=== PATIENT | female | born 1940 | race Caucasian/White ===

== ENCOUNTER → 2016-06-26 | Outpatient (CLI) | payer MEDICARE, MEDICAID | LOC: RAD 13:08 | PROVIDERS: ATTEND Family Medicine | DX: Z12.2 Encounter for screening for malignant neoplasm of respiratory organs (principal); F17.210 Nicotine dependence, cigarettes, uncomplicated | CPT/HCPCS: G0297 ==

== ENCOUNTER 2018-02-21 17:22 | Emergency (ER) | payer MEDICARE, MEDICAID ==
--- NOTE | 2018-02-21 18:30 | ER Document Report ---
ED Medical Screen (RME) - General Chief Complaint: Lower Abdominal Pain Stated Complaint: ABDOMINAL PAIN Time Seen by Provider: 02/21/18 18:27 Mode of Arrival: Ambulatory Information source: Patient Notes: This is a 77 year woman who presents to the emergency room with abdominal pain. Patient does have a history of hypertension and urinary incontinence ( medicines include lisinopril and Ditropan). She does report chills, subjective fevers and lower abdominal discomfort. She has had a history of constipation as well. Patient's primary care doctors in [place]. TRAVEL OUTSIDE OF THE [place] IN LAST 30 DAYS: No - Related Data Allergies/Adverse Reactions: Penicillins Allergy (Verified 02/21/18 17:27) Past Medical History - Past Medical History Cardiac Medical History: Reports: Hx Hypertension Renal/ Medical History: Denies: Hx Peritoneal Dialysis Physical Exam - Vital signs Vitals: Temp Pulse Resp BP Pulse Ox 99.5 F 95 18 142/61 H 95 02/21/18 17:33 02/21/18 17:33 02/21/18 17:33 02/21/18 17:33 02/21/18 17:33 Course - Vital Signs Vital signs: Temp Pulse Resp BP Pulse Ox 99.5 F 95 18 142/61 H 95 02/21/18 17:33 02/21/18 17:33 02/21/18 17:33 02/21/18 17:33 02/21/18 17:33 Doctor's Discharge - Discharge Referrals: FABIÁN CERON MD [Primary Care Provider] - Follow up as needed
[2018-02-21 18:55] LABS: ABSOLUTE EOSINOPHILS # (AUTO) 0.1 10^3/uL (0.0-0.6); ABSOLUTE LYMPHOCYTES (AUTO) 1.2 10^3/uL (0.5-4.7); ABSOLUTE MONOCYTES (AUTO) 0.6 10^3/uL (0.1-1.4); ABSOLUTE NEUT (AUTO) 6.1 10^3/uL (1.7-8.2); BASOPHILS % (AUTO) 0.4 % (0-2); EOSINOPHILS % (AUTO) 0.7 % (0-6); HEMATOCRIT 37.6 % (36.0-47.0); HEMOGLOBIN 12.9 g/dL (12.0-15.5); MEAN CORPUSCULAR HEMOGLOBIN 29.5 pg (27.0-33.4); MEAN CORPUSCULAR HGB CONC 34.2 g/dL (32.0-36.0); MEAN CORPUSCULAR VOLUME 86 fl (80-97); MONOCYTES % (AUTO) 7.4 % (3-13); PLATELET COUNT 101 10^3/uL (150-450); RED BLOOD COUNT 4.37 10^6/uL (3.72-5.28); RED CELL DISTRIBUTION WIDTH 16.2 % (11.5-14.0); SEGMENTED NEUTROPHILS % (AUTO) 76.5 % (42-78); TOTAL CELLS COUNTED % (AUTO) 100 %
[2018-02-21 19:08] LABS: ALANINE AMINOTRANSFERASE 24 U/L (9-52); ALBUMIN 3.9 g/dL (3.5-5.0); ALKALINE PHOSPHATASE 72 U/L (38-126); ANION GAP 10 (5-19); ASPARTATE AMINO TRANSFERASE 51 U/L (14-36); BILIRUBIN,DIRECT 0.5 mg/dL (0.0-0.4); BILIRUBIN,TOTAL 1.8 mg/dL (0.2-1.3); BLOOD UREA NITROGEN 10 mg/dL (7-20); CALCIUM 9.9 mg/dL (8.4-10.2); CARBON DIOXIDE 28 mmol/L (22-30); CHLORIDE 105 mmol/L (98-107); GLUCOSE 134 mg/dL (75-110); SODIUM 142.5 mmol/L (137-145); TOTAL PROTEIN 7.5 g/dL (6.3-8.2)
[2018-02-21] MEDS ORDERED: NORMAL SALINE 1000 ML 1,000 ML IV ONE (19:58)
[2018-02-21 20:30] LABS: APPEARANCE,URINE CLOUDY; BILIRUBIN,URINE SMALL (NEGATIVE); GLUCOSE, URINE NEGATIVE (NEGATIVE); KETONES,URINE TRACE mg/dL (NEGATIVE); LEUKOCYTE ESTERASE,URINE NEGATIVE (NEGATIVE); NITRITE,URINE NEGATIVE (NEGATIVE); PROTEIN,URINE 30 mg/dL (NEGATIVE); URINE SPECIFIC GRAVITY 1.024
[2018-02-21 20:35] LABS: COLOR,URINE DARK YELLOW
[2018-02-21] MEDS ORDERED: ONDANSETRON HCL INJ/PF 4 MG/2 ML SDV IV ONE (21:28)
[2018-02-21] MEDS ORDERED: PROCHLORPERAZINE EDISYLATE INJ 10 MG/2 ML VIAL IV ONE (21:28)
--- NOTE | 2018-02-21 22:43 | RADIOLOGY REPORT (SQ) ---
EXAM DESCRIPTION: CT ABDOMEN WITHOUT IV CONTRAST COMPLETED DATE/TME: 02/21/2018 21:28 CLINICAL HISTORY: 77 years, Female, flank pain This exam was performed according to our departmental dose-optimization program which includes automated exposure control, adjustment of the mA and/or kVp according to patient size and/or use of iterative reconstruction technique where applicable. FINDINGS: Visualized lung bases are within normal limits. Liver and spleen demonstrate calcifications consistent with sequela Atheromatous disease. Liver is nodular and left lobe is enlarged, suspicious for cirrhosis. The spleen is also mildly enlarged. Pancreas, adrenal glands and kidneys are within normal limits. Gallbladder is moderately distended although no pericholecystic inflammation is noted on CT. No significant hydronephrosis or biliary dilatation. There is no renal, ureteral or bladder calculus. No dilated loops of bowel to suggest obstruction. Moderate amount of stool in the colon. No free fluid or free air. No abdominal or pelvic lymphadenopathy. Abdominal aorta moderately calcified without aneurysm. IMPRESSION: No evidence for nephrolithiasis or urinary obstruction. Hepatic cirrhosis.
--- NOTE | 2018-02-21 23:13 | ER Document Report ---
ED General - General Chief Complaint: Lower Abdominal Pain Stated Complaint: ABDOMINAL PAIN Time Seen by Provider: 02/21/18 18:27 Mode of Arrival: Ambulatory TRAVEL OUTSIDE OF THE [place] IN LAST 30 DAYS: No - HPI Patient complains to provider of: Abdominal pain Notes: Patient was seen for abdominal pain headache patient was seen by the triage provider note is provided below This is a 77 year woman who presents to the emergency room with abdominal pain. Patient does have a history of hypertension and urinary incontinence ( medicines include lisinopril and Ditropan). She does report chills, subjective fevers and lower abdominal discomfort. She has had a history of constipation as well. Patient's primary care doctors in [place]. Patient does concur with this note. Patient states also having headache in the back of the head top of the neck to the base of the neck. Patient denies any trauma denies any frontal pain. The patient does not take any medication for the pain. Patient states has a history of chronic UTIs. Patient denies any recent antibiotics. Patient otherwise denies any nausea vomiting denies any diarrhea states last bowel movement was day prior to arrival. Patient resting comfortably upon my evaluation. Patient states pain is upper and lower bilateral flanks - Related Data Allergies/Adverse Reactions: Penicillins Allergy (Verified 02/21/18 17:27) Past Medical History - General Information source: Patient - Social History Smoking Status: Current Every Day Smoker Family History: Reviewed & Not Pertinent Patient has suicidal ideation: No Patient has homicidal ideation: No - Past Medical History Cardiac Medical History: Reports: Hx Hypertension Renal/ Medical History: Denies: Hx Peritoneal Dialysis Review of Systems - Review of Systems Constitutional: No symptoms reported EENT: No symptoms reported Cardiovascular: No symptoms reported Respiratory: No symptoms reported Gastrointestinal: Abdominal pain Genitourinary: No symptoms reported Female Genitourinary: No symptoms reported Musculoskeletal: No symptoms reported Skin: No symptoms reported Hematologic/Lymphatic: No symptoms reported Neurological/Psychological: Headaches -: Yes All other systems reviewed and negative Physical Exam - Vital signs Vitals: Temp Pulse Resp BP Pulse Ox 99.5 F 95 18 142/61 H 95 02/21/18 17:33 02/21/18 17:33 02/21/18 17:33 02/21/18 17:33 02/21/18 17:33 Interpretation: Normal - General General appearance: Appears well, Alert - HEENT Head: Normocephalic, Atraumatic Eyes: Normal Pupils: PERRL - Respiratory Respiratory status: No respiratory distress Chest status: Nontender Breath sounds: Normal Chest palpation: Normal - Cardiovascular Rhythm: Regular Heart sounds: Normal auscultation Murmur: No - Abdominal Inspection: Normal Distension: No distension Bowel sounds: Normal Tenderness: Nontender Organomegaly: No organomegaly - Back Back: Normal, Nontender - Extremities General upper extremity: Normal inspection, Nontender, Normal color, Normal ROM , Normal temperature General lower extremity: Normal inspection, Nontender, Normal color, Normal ROM , Normal temperature, Normal weight bearing. No: Blake's sign - Neurological Neuro grossly intact: Yes Cognition: Normal Orientation: AAOx4 [place] Coma Scale Eye Opening: Spontaneous [place] Coma Scale Verbal: Oriented [place] Coma Scale Motor: Obeys Commands [place] Coma Scale Total: 15 Speech: Normal Motor strength normal: LUE, RUE, LLE, RLE Sensory: Normal - Psychological Associated symptoms: Normal affect, Normal mood - Skin Skin Temperature: Warm Skin Moisture: Dry Skin Color: Normal Course - Re-evaluation Re-evalutation: 02/22/18 00:45 Laboratory studies not reveal any clear etiology slight hematuria on the urinalysis no signs of gross UTI. Patient because of hematuria and bilateral flank pain underwent a CT scan looking for kidney stones this was negative although there is moderate amount of stool which does coincide patient's history constipation and will explain diffuse abdominal pain upper and lower. Patient was recommended to start taking Bentyl for abdominal pain along with Tylenol Motrin. Patient was also encouraged to take a stool softener a prescription for Senokot-S was given to the patient. Patient was given Zofran and Compazine for her headache and stated resolution however at time of discharge patient states headache return and requesting more medication Tylenol was given. Patient otherwise upon last evaluation sleeping easily arousable lying in the right lateral recumbent position no signs of any obvious distress. The patient presents with abdominal pain without signs of peritonitis or other life-threatening or serious etiology. The patient appears stable for discharge and has been instructed to return immediately if the symptoms worsen in any way, or in 8-12hr if not improved for re-evaluation. The patient has been instructed to return if the symptoms worsen or change in any way. The patient presents with headache without signs of SUPERINTENDENT SANITATION bleed, stroke, infection, or other serious etiology. The patient is neurologically intact. Given the extremely low risk of these diagnoses further testing and evaluation for these possibilities does not appear to be indicated at this time. The patient has been instructed to return if the symptoms worsen or change in any way.. - Vital Signs Vital signs: Temp Pulse Resp BP Pulse Ox 98.4 F 90 18 113/96 H 96 02/21/18 23:24 02/21/18 23:24 02/21/18 23:24 02/21/18 23:24 02/21/18 23:24 - Laboratory Result Diagrams: 02/21/18 18:36 02/21/18 18:36 Laboratory results interpreted by me: 02/21/18 02/21/18 02/21/18 18:36 18:36 19:40 RDW 16.2 H Plt Count 101 L Glucose 134 H Total Bilirubin 1.8 H Direct Bilirubin 0.5 H AST 51 H Urine Protein 30 H Urine Ketones TRACE H Urine Blood MODERATE H Urine Bilirubin SMALL H Urine Urobilinogen 4.0 H Urine Ascorbic Acid 20 H Discharge - Discharge Clinical Impression: Abdominal pain, Constipation, Hematuria Condition: Good Disposition: HOME, SELF-CARE Instructions: Abdominal Pain ([facility]), Constipation ([facility]), Hematuria ([facility]) Additional Instructions: Patient CAT scan today does not show any signs of kidney stones I do not have an expiration for the small amount of blood that I see within your urine. CAT scan does show significant amount of stool within the colon consistent with some constipation. Otherwise laboratory studies not show any medical pathology. No signs of urinary tract infection no signs of any need for antibiotics. Would highly recommend taking Bentyl as needed for your abdominal pain and also taking the stool softener laxative as prescribed. Return to ER symptoms worsen follow-up with your primary care provider. Prescriptions: Dicyclomine HCl [Bentyl 20 mg Tablet] 20 mg PO QID #40 tablet Sennosides/Docusate Sodium [Senna-S Laxative Tablet] 1 each PO BID #30 tablet Referrals: FABIÁN CERON MD [Primary Care Provider] - Follow up as needed
[2018-02-21] MEDS ORDERED: ACETAMINOPHEN 325 MG TABLET PO ONE (23:14)
[2018-02-21 23:25] VITALS: BP 113/96
== END 2018-02-21 23:25 | disposition home or self-care (01) ==
LOC: ER 17:22
DX: R10.30 Lower abdominal pain, unspecified (principal); K59.00 Constipation, unspecified; R31.9 Hematuria, unspecified; F17.200 Nicotine dependence, unspecified, uncomplicated; I10 Essential (primary) hypertension; Z88.0 Allergy status to penicillin; Z87.440 Personal history of urinary (tract) infections
CPT/HCPCS: 99284; 96361; 96374; 96375; 36415; 87086; 85025; 87088; 80053; 81001; 87186; 76380; A9270; J0780; J2405; J7030

== ENCOUNTER 2019-02-26 13:16 | Inpatient (IN) | payer MEDICARE, MEDICAID ==
[2019-02-26] MEDS ORDERED: CEFTRIAXONE INJ 1000 MG VIAL IV ONE (13:42)
[2019-02-26] MEDS ORDERED: NORMAL SALINE 1000 ML 2,250 ML IV ONE (13:46)
--- NOTE | 2019-02-26 13:49 | ER Document Report ---
ED General - General Chief Complaint: Weakness Stated Complaint: WEAKNESS Time Seen by Provider: 02/26/19 13:40 Information source: Patient, Emergency Med Personnel Notes: 78-year-old woman presents to the emergency department with a complaint of shaking all over. Apparently has been off of her antihypertensive medication, lisinopril for the past 3 months blood pressure is noted to be elevated. She complains of headache denies chest pain or shortness of breath. She is afebrile, however, tachycardic and complains of generalized weakness. TRAVEL OUTSIDE OF THE [place] IN LAST 30 DAYS: No - Related Data Allergies/Adverse Reactions: Penicillins Allergy (Verified 02/21/18 17:27) Past Medical History - Social History Smoking Status: Unknown if Ever Smoked Family History: Reviewed & Not Pertinent - Past Medical History Cardiac Medical History: Reports: Hx Hypertension Renal/ Medical History: Denies: Hx Peritoneal Dialysis Review of Systems - Review of Systems Notes: REVIEW OF SYSTEMS GENERAL: + nausea, no as vomiting, fevers, chills, or weight loss. NEUROLOGIC: + headache, negative for any blurry vision, blind spots, double vision, facial asymmetry, dysphagia, dysarthria, hemiparesis, hemisensory deficits, vertigo, ataxia. HEENT: Negative for any head trauma, neck trauma, neck stiffness, photophobia, phonophobia, sinusitis, rhinitis. CARDIAC: Negative for any chest pain, dyspnea on exertion, paroxysmal nocturnal dyspnea, peripheral edema. PULMONARY: Negative for any shortness of breath, wheezing, COPD, or TB exposure. GASTROINTESTINAL: Negative for any abdominal pain, nausea, vomiting, bright red blood per rectum, melena. GENITOURINARY: Negative for any dysuria, hematuria, incontinence. INTEGUMENTARY: Negative for any rashes, cuts, insect bites. RHEUMATOLOGIC: Negative for any joint pains, photosensitive rashes, history of vasculitis or kidney problems. HEMATOLOGIC: Negative for any abnormal bruising, frequent infections or bleeding. Physical Exam - Vital signs Vitals: Temp Resp Pulse Ox 98.6 F 19 96 02/26/19 13:37 02/26/19 13:37 02/26/19 13:37 - Notes Notes: Reviewed vital signs and nursing note as charted by RN. CONSTITUTIONAL: Chronically ill appearing 78-year-old with diffuse shaking of her lower jaw, she is attentive, alert and interactive with good eye contact; acting appropriately for age HEAD: Normocephalic; atraumatic; No swelling EYES: PERRL; Conjunctivae clear, no drainage; EOMI ENT: External ears without lesions; External auditory canal is patent; TMs without erythema, landmarks clear and well visualized; no rhinorrhea; Pharynx without erythema or lesions, no tonsillar hypertrophy, airway patent, mucous membranes pink and moist NECK: Supple, no cervical lymphadenopathy, no masses CARD: Tachycardic no murmurs, no rubs, no gallops Resp: no retractions, no stridor, no nasal flaring, no accessory muscle use. The lungs are clear to auscultation bilaterally, no wheezing, no rales, no rhonchi. ABD/GI: Normal bowel sounds; non-distended; soft, non-tender, no rebound, no guarding, no palpable organomegaly EXT: Normal ROM in all joints; non-tender to palpation; no effusions, no edema SKIN: Normal color for age and race; warm; dry; good turgor; no acute lesions noted NEURO: No facial asymmetry; Moves all extremities equally; Motor and sensory function intact chronically ill Course - Re-evaluation Re-evalutation: 02/26/19 17:00 78-year-old woman with a complaint of shaking all over, she is 3 months without taking her antihypertensive medications she presents with markedly elevated blood pressure and shaky episodes. Evaluation reveals an elevated lactate of 4.4, UTI blood pressure of 211/178, map 189. 02/26/19 17:02 Sepsis work-up was completed, IV Rocephin 1 g, IV fluids 30 mL/kg, hydralazine 20 mg IV. The hospitalist Dr. Nguyen was contacted and will admit the patient to the hospital for further evaluation and treatment. - Vital Signs Vital signs: Temp Pulse Resp BP Pulse Ox 98.4 F 78 20 147/56 H 97 03/01/19 17:15 03/01/19 17:15 03/01/19 17:15 03/01/19 17:15 03/01/19 17:15 - Laboratory Result Diagrams: 03/01/19 04:59 03/01/19 04:59 Laboratory results interpreted by me: 02/26/19 02/26/19 02/26/19 13:40 13:40 13:40 RBC Hgb Hct RDW 15.7 H Plt Count 111 L Potassium Creatinine 0.51 L Glucose Lactic Acid 4.4 H AST 54 H Total Protein Albumin Triglycerides Cholesterol LDL Cholesterol Direct VLDL Cholesterol Urine Blood Urine Nitrite (Reflex) Leukocyte Esterase Rfl 02/26/19 02/26/19 02/27/19 13:40 13:40 09:10 RBC 3.57 L Hgb 10.1 L D Hct 30.4 L RDW 15.3 H Plt Count 87 L Potassium Creatinine Glucose Lactic Acid AST Total Protein Albumin Triglycerides 211 H Cholesterol 223.56 H LDL Cholesterol Direct 115 H VLDL Cholesterol 42.2 H Urine Blood SMALL H Urine Nitrite (Reflex) POSITIVE H Leukocyte Esterase Rfl MODERATE H 02/27/19 02/28/19 02/28/19 09:10 04:45 04:45 RBC Hgb 10.6 L Hct 31.9 L RDW 15.7 H Plt Count 79 L Potassium 3.5 L Creatinine Glucose 131 H Lactic Acid AST 37 H 41 H Total Protein 6.1 L Albumin 3.3 L Triglycerides Cholesterol LDL Cholesterol Direct VLDL Cholesterol Urine Blood Urine Nitrite (Reflex) Leukocyte Esterase Rfl I have reviewed laboratory data and used this information and the treatment decisions regarding the patient. - Diagnostic Test Radiology reviewed: Image reviewed - Cardiomegaly, no failure, no infiltrate. - EKG Interpretation by Oh EKG shows normal: Sinus rhythm - Sinus tachycardia Rate: Tachycardia Isabella/QRS: RBBB - Incomplete, LAHB/LAFB When compared to previous EKG there are: Previous EKG unavailable Critical Care Note - Critical Care Note Total time excluding time spent on procedures (mins): 60 - Critical care time spent obtaining history from patient or surrogate, discussions with consultants, development of treatment plan with patient or surrogate, evaluation of patient's response to treatment, examination of patient, ordering and performing treatments and interventions, ordering and review of laboratory studies, re-ev aluation of patient's condition, ordering and review of radiographic studies and review of old charts Discharge - Discharge Clinical Impression: Hypertensive urgency Sepsis Qualifiers: Sepsis type: sepsis due to unspecified organism Sepsis acute organ dysfunction status: unspecified Qualified Code(s): A41.9 - Sepsis, unspecified organism UTI (urinary tract infection) Qualifiers: Urinary tract infection type: acute cystitis Hematuria presence: without hematuria Qualified Code(s): N30.00 - Acute cystitis without hematuria Condition: Stable Disposition: ADMITTED INPATIENT Admitting Provider: Patrick (Hospitalist) Unit Admitted: [facility]
[2019-02-26 14:05] LABS: ABSOLUTE EOSINOPHILS # (AUTO) 0.1 10^3/uL (0.0-0.6); ABSOLUTE LYMPHOCYTES (AUTO) 1.6 10^3/uL (0.5-4.7); ABSOLUTE MONOCYTES (AUTO) 0.6 10^3/uL (0.1-1.4); ABSOLUTE NEUT (AUTO) 6.1 10^3/uL (1.7-8.2); BASOPHILS % (AUTO) 0.5 % (0-2); EOSINOPHILS % (AUTO) 1.5 % (0-6); HEMATOCRIT 38.1 % (36.0-47.0); HEMOGLOBIN 12.7 g/dL (12.0-15.5); LYMPHOCYTES % (AUTO) 19.3 % (13-45); MEAN CORPUSCULAR HEMOGLOBIN 28.3 pg (27.0-33.4); MEAN CORPUSCULAR HGB CONC 33.3 g/dL (32.0-36.0); MEAN CORPUSCULAR VOLUME 85 fl (80-97); PLATELET COUNT 111 10^3/uL (150-450); RED BLOOD COUNT 4.49 10^6/uL (3.72-5.28); RED CELL DISTRIBUTION WIDTH 15.7 % (11.5-14.0); SEGMENTED NEUTROPHILS % (AUTO) 71.7 % (42-78); TOTAL CELLS COUNTED % (AUTO) 100 %; WHITE BLOOD COUNT 8.5 10^3/uL (4.0-10.5)
[2019-02-26 14:06] LABS: VENOUS BLOOD HCO3 24.2 mmol/L (20-32); VENOUS BLOOD PH 7.38 (7.30-7.42)
--- NOTE | 2019-02-26 14:22 | RADIOLOGY REPORT (SQ) ---
EXAM DESCRIPTION: CHEST SINGLE VIEW COMPLETED DATE/TIME: 02/26/2019 2:02 pm REASON FOR STUDY: Shortness of breath COMPARISON: 09/10/2009 NUMBER OF VIEWS: One view. TECHNIQUE: Single frontal radiographic view of the chest acquired. LIMITATIONS: None. FINDINGS: LUNGS AND PLEURA: No opacities, masses or pneumothorax. No pleural effusion. MEDIASTINUM AND HILAR STRUCTURES: No masses. Contour normal. HEART AND VASCULAR STRUCTURES: Heart enlarged without failure. Normal vasculature. BONES: No acute findings. HARDWARE: None in the chest. OTHER: No other significant finding. IMPRESSION: HEART ENLARGED WITHOUT FAILURE. NO OTHER SIGNIFICANT RADIOGRAPHIC FINDING IN THE CHEST. TECHNICAL DOCUMENTATION: JOB ID: [id number] [employer] All Rights Reserved Reading location - IP/workstation name: [email or web address]
[2019-02-26 14:23] LABS: ALBUMIN 4.6 g/dL (3.5-5.0); ALKALINE PHOSPHATASE 115 U/L (38-126); ANION GAP 13 (5-19); ASPARTATE AMINO TRANSFERASE 54 U/L (14-36); BILIRUBIN,DIRECT 0.3 mg/dL (0.0-0.4); BILIRUBIN,TOTAL 1.1 mg/dL (0.2-1.3); BLOOD UREA NITROGEN 7 mg/dL (7-20); CALCIUM 9.9 mg/dL (8.4-10.2); CARBON DIOXIDE 24 mmol/L (22-30); CHLORIDE 106 mmol/L (98-107); GLUCOSE 107 mg/dL (75-110); POTASSIUM 3.8 mmol/L (3.6-5.0); TOTAL PROTEIN 8.2 g/dL (6.3-8.2)
[2019-02-26 14:29] LABS: INTERNATIONAL RATION (INR) 1.08
[2019-02-26 14:39] LABS: AMORPHOUS SEDIMENT,URINE TRACE /HPF; APPEARANCE,URINE CLOUDY; BILIRUBIN,URINE NEGATIVE (NEGATIVE); COLOR,URINE YELLOW; GLUCOSE, URINE NEGATIVE (NEGATIVE); KETONES,URINE NEGATIVE (NEGATIVE); PROTEIN,URINE NEGATIVE (NEGATIVE); URINE SPECIFIC GRAVITY 1.009; UROBILINOGEN,URINE NEGATIVE mg/dL (<2.0)
[2019-02-26] MEDS ORDERED: ONDANSETRON HCL INJ/PF 4 MG/2 ML SDV IV ONE (15:28)
[2019-02-26] MEDS ORDERED: NICOTINE 14 MG/24 HR PATCH.TD24 TD ONE (15:29)
[2019-02-26] MEDS ORDERED: HYDRALAZINE HCL INJ/PF 20 MG/1 ML SDV IV ONE (16:44)
[2019-02-26] MEDS ORDERED: METOPROLOL TARTRATE PF/INJ 5 MG/5 ML SDV IV PRN (17:29)
[2019-02-26] MEDS ORDERED: MORPHINE SULFATE 10 MG/ML INJ IV PRN (17:29)
[2019-02-26] MEDS ORDERED: HYDRALAZINE HCL INJ/PF 20 MG/1 ML SDV IV PRN (17:29)
[2019-02-26] MEDS ORDERED: NITROGLYCERIN 0.4 MG/TAB 25 TAB/BOTTLE SL PRN (17:29)
[2019-02-26] MEDS ORDERED: IPRATROPIUM/ALBUTEROL 0.5-2.5 MG/3 ML AMPUL NEB PRN (17:33)
[2019-02-26] MEDS ORDERED: ONDANSETRON HCL INJ/PF 4 MG/2 ML SDV IV PRN (17:33)
[2019-02-26] MEDS ORDERED: PROMETHAZINE HCL INJ 25 MG/1 ML VIAL IV PRN (17:33)
[2019-02-26] MEDS ORDERED: NICOTINE 7 MG/24 HR PATCH.TD24 TD PRN (17:33)
[2019-02-26] MEDS ORDERED: OXYCODONE-ACETAMINOPHEN 5-325 MG TABLET PO PRN (17:33)
[2019-02-26 17:51] LABS: CHOLESTEROL 223.56 mg/dL (0-200); TRIGLYCERIDES 211 mg/dL (<150)
--- NOTE | 2019-02-26 17:52 | PDOC H&P ---
History of Present Illness Admission Date/PCP: FABIÁN CERON MD History of Present Illness: ANT TILLEY is a 78 year old female past medical history of hypertension, obesity, presenting to ED elevation of high blood pressure. Patient was on a lisinopril 20 mg p.o. daily but decided to stop it 2 weeks ago stating she was related to get a refill, Thursday at 11 AM was checking her blood pressure noted to have her blood pressure was very high and her possible in the 150s. She called her granddaughter and she was asked to come to ED. She is also complaining of feeling shaky, having queasy feeling in her stomach, feeling nauseous very anxious, she is also complaining of chronic dysuria, frequency and urgency. Denies any chest pain, shortness of breath, vomiting, abdominal pain, diarrhea, constipation, weight changes, orthopnea, paroxysmal nocturnal dyspnea, or dyspnea on exertion. In ED she was found to have a blood pressure of 211 with UA positive for leukocyte esterase elevated lactic acid. Was started on IV ceftriaxone, volume resuscitated, and given IV hydralazine. Hospitalist called consulted for admission. Past Medical History Cardiac Medical History: Reports: Hypertension Social History Smoking Status: Current Every Day Smoker Family History Family History: Reviewed & Not Pertinent Parental Family History Reviewed: Yes Children Family History Reviewed: Yes Sibling(s) Family History Reviewed.: Yes Medication/Allergy Home Medications: Dicyclomine HCl [Bentyl 20 mg Tablet] 20 mg PO QID #40 tablet 02/21/18 Sennosides/Docusate Sodium [Senna-S Laxative Tablet] 1 each PO BID #30 tablet 02/21/18 Allergies/Adverse Reactions: Penicillins Allergy (Verified 02/21/18 17:27) Review of Systems Review of Systems: as per hpi Physical Exam Vital Signs: Temp Pulse Resp BP Pulse Ox 98.6 F 90 19 194/92 H 95 02/26/19 13:37 02/26/19 14:06 02/26/19 17:01 02/26/19 17:01 02/26/19 17:01 Intake & Output 02/25/19 02/26/19 02/27/19 06:59 06:59 06:59 Weight 75.7 kg General appearance: PRESENT: obese Head exam: PRESENT: atraumatic, normocephalic Respiratory exam: PRESENT: clear to auscultation janae. ABSENT: rales, rhonchi, wheezes Cardiovascular exam: PRESENT: systolic murmur Pulses: PRESENT: normal dorsalis pedis pul GI/Abdominal exam: PRESENT: normal bowel sounds, soft. ABSENT: distended, guarding, mass, organolmegaly, rebound, tenderness Extremities exam: PRESENT: full ROM, pedal edema. ABSENT: calf tenderness, clubbing Neurological exam: PRESENT: alert, awake, oriented to person, oriented to place, oriented to time, oriented to situation, CN II-XII grossly intact. ABSENT: motor sensory deficit Psychiatric exam: PRESENT: anxious Results Laboratory Results: 02/26/19 13:40 02/26/19 13:40 02/26/19 02/26/19 02/26/19 13:40 13:40 13:40 WBC 8.5 RBC 4.49 Hgb 12.7 Hct 38.1 MCV 85 MCH 28.3 MCHC 33.3 RDW 15.7 H Plt Count 111 L Seg Neutrophils % 71.7 VBG pH VBG pCO2 VBG HCO3 VBG Base Excess Sodium 143.1 Potassium 3.8 Chloride 106 Carbon Dioxide 24 Anion Gap 13 BUN 7 Creatinine 0.51 L Est GFR ( Amer) > 60 Glucose 107 Lactic Acid 4.4 H Calcium 9.9 Total Bilirubin 1.1 AST 54 H Alkaline Phosphatase 115 Total Protein 8.2 Albumin 4.6 Urine Color Urine Appearance Urine pH Ur Specific [place] Urine Protein Urine Glucose (UA) Urine Ketones Urine Blood Urine RBC (Auto) 02/26/19 02/26/19 13:40 13:40 WBC RBC Hgb Hct MCV MCH MCHC RDW Plt Count Seg Neutrophils % VBG pH 7.38 VBG pCO2 42.0 VBG HCO3 24.2 VBG Base Excess -1.0 Sodium Potassium Chloride Carbon Dioxide Anion Gap BUN Creatinine Est GFR ( Amer) Glucose Lactic Acid Calcium Total Bilirubin AST Alkaline Phosphatase Total Protein Albumin Urine Color YELLOW Urine Appearance CLOUDY Urine pH 7.0 Ur Specific [place] 1.009 Urine Protein NEGATIVE Urine Glucose (UA) NEGATIVE Urine Ketones NEGATIVE Urine Blood SMALL H Urine RBC (Auto) 4 Impressions: Chest X-Ray 02/26/19 13:41 IMPRESSION: HEART ENLARGED WITHOUT FAILURE. NO OTHER SIGNIFICANT RADIOGRAPHIC FINDING IN THE CHEST. Assessment and Plan - Diagnosis (1) Hypertensive urgency Is this a current diagnosis for this admission?: Yes Plan: Due to noncompliance. Patient stopped taking her meds 2 weeks ago. No sign of endorgan damage. Admit to telemetry, IV hydralazine PRN, restart ELINA, adjust meds as needed. (2) Systemic inflammatory response syndrome (SIRS) Is this a current diagnosis for this admission?: Yes Plan: Afebrile. WBC WNL. Patient does not looks toxic however lactic acid was 4.4 and UA positive for leukocyte esterase. Started on volume resuscitation in ED. Empiric IV antibiotics. Trend lactic acid. Monitor vitals. Follow-up urine culture. (3) Left bundle branch block Is this a current diagnosis for this admission?: Yes Plan: Denies any history of CAD. Unsure if she ever had any EKG abnormalities. Unfortunately no previous EKG available for comparison. Systolic murmur on physical examination. Chest x-ray positive for cardiomegaly. PCP office closed today. Admit to IMCU, check troponins, lipid panel, sublingual nitroglycerin, IV morphine. Repeat EKG. (4) Murmur, heart Is this a current diagnosis for this admission?: Yes Plan: Systolic heart murmur loudest on the aortic region. Denies any history of CHF or CAD. CXR positive for cardiomegaly. 2D echo for evaluation fracture heart disease. (5) Obstructive sleep apnea Is this a current diagnosis for this admission?: Yes Plan: STOP BANG Score 4 BMI 32.6. Reports history of snoring, lethargy and journal clerk headache. Has not been evaluated for obstructive sleep apnea. We will start on nocturnal CPAP. Encourage weight loss. Outpatient nocturnal polysomnography. (6) UTI (urinary tract infection) Qualifiers: Urinary tract infection type: acute cystitis Hematuria presence: without h ematuria Qualified Code(s): N30.00 - Acute cystitis without hematuria Is this a current diagnosis for this admission?: Yes Plan: Likely due to gram-negative including E. coli. Empiric IV antibiotic. Follow-up urine culture.
[2019-02-26 18:02] LABS: DIRECT LDL 115 mg/dL (<100)
[2019-02-26 18:05] LABS: VLDL CHOLESTEROL 42.2 mg/dL (10-31)
[2019-02-26 18:16] LABS: TROPONIN I 0.037 ng/mL
[2019-02-26] MEDS ORDERED: LISINOPRIL 10 MG TABLET PO ONE (19:30)
[2019-02-26] MEDS ORDERED: ASPIRIN 81 MG TABLET, CHEWABLE PO ONE (19:30)
[2019-02-26] MEDS ORDERED: DOCUSATE SODIUM 100 MG CAPSULE PO ONE (20:00)
[2019-02-26] MEDS: ACETAMINOPHEN 325 MG TABLET PO PRN (20:49)
[2019-02-26] MEDS: ATORVASTATIN CALCIUM 40 MG TABLET PO SCH (21:33)
[2019-02-26] MEDS: HEPARIN SOD (PORCINE) 5,000 UNIT/ML 1 ML VIAL SUBCUT SCH (21:34)
--- NOTE | 2019-02-26 21:36 | EKG REPORT ---
SEVERITY:- ABNORMAL ECG - SINUS TACHYCARDIA PROBABLE LEFT ATRIAL ABNORMALITY INCOMPLETE RBBB AND LAFB : Confirmed by: Milton Mcdowell 26-Feb-2019 21:35:52
[2019-02-26] MEDS ORDERED: INFLUENZA QUAD (6MOS+) 2019-20 VAC 0.5 ML SYR IM ONE (23:27)
[2019-02-27] MEDS ORDERED: METOPROLOL TARTRATE 25 MG TABLET PO ONE (02:30)
[2019-02-27] MEDS: HEPARIN SOD (PORCINE) 5,000 UNIT/ML 1 ML VIAL SUBCUT SCH ×3 (06:22→21:35)
[2019-02-27] MEDS: PANTOPRAZOLE SODIUM 40 MG TABLET.DR PO SCH (06:24)
[2019-02-27] MEDS: ACETAMINOPHEN 325 MG TABLET PO PRN (07:50)
[2019-02-27 09:36] LABS: ABSOLUTE EOSINOPHILS # (AUTO) 0.1 10^3/uL (0.0-0.6); ABSOLUTE LYMPHOCYTES (AUTO) 1.3 10^3/uL (0.5-4.7); ABSOLUTE MONOCYTES (AUTO) 0.5 10^3/uL (0.1-1.4); ABSOLUTE NEUT (AUTO) 3.6 10^3/uL (1.7-8.2); BASOPHILS % (AUTO) 0.7 % (0-2); EOSINOPHILS % (AUTO) 2.2 % (0-6); HEMATOCRIT 30.4 % (36.0-47.0); LYMPHOCYTES % (AUTO) 23.7 % (13-45); MEAN CORPUSCULAR HEMOGLOBIN 28.4 pg (27.0-33.4); MEAN CORPUSCULAR HGB CONC 33.3 g/dL (32.0-36.0); MEAN CORPUSCULAR VOLUME 85 fl (80-97); MONOCYTES % (AUTO) 9.3 % (3-13); RED BLOOD COUNT 3.57 10^6/uL (3.72-5.28); RED CELL DISTRIBUTION WIDTH 15.3 % (11.5-14.0); SEGMENTED NEUTROPHILS % (AUTO) 64.1 % (42-78); TOTAL CELLS COUNTED % (AUTO) 100 %; WHITE BLOOD COUNT 5.6 10^3/uL (4.0-10.5)
[2019-02-27 09:41] LABS: HEMOGLOBIN 10.1 g/dL (12.0-15.5); PLATELET COUNT 87 10^3/uL (150-450)
[2019-02-27 09:55] LABS: ALBUMIN 3.3 g/dL (3.5-5.0); ALKALINE PHOSPHATASE 78 U/L (38-126); ANION GAP 8 (5-19); ASPARTATE AMINO TRANSFERASE 37 U/L (14-36); BILIRUBIN,DIRECT 0.2 mg/dL (0.0-0.4); BILIRUBIN,TOTAL 0.6 mg/dL (0.2-1.3); BLOOD UREA NITROGEN 9 mg/dL (7-20); CALCIUM 8.6 mg/dL (8.4-10.2); CARBON DIOXIDE 25 mmol/L (22-30); CHLORIDE 107 mmol/L (98-107); GLUCOSE 108 mg/dL (75-110); POTASSIUM 3.5 mmol/L (3.6-5.0); TOTAL PROTEIN 6.1 g/dL (6.3-8.2)
[2019-02-27] MEDS ORDERED: CEFTRIAXONE 1 GM/D5W RTU 1 GM/50 ML RTUPB IV SCH (10:00)
[2019-02-27] MEDS: LISINOPRIL 10 MG TABLET PO SCH (10:18)
[2019-02-27] MEDS: DOCUSATE SODIUM 100 MG CAPSULE PO SCH ×2 (10:19→17:28)
[2019-02-27] MEDS: NICOTINE 21 MG/24 HR PATCH.TD24 TD SCH (10:19)
[2019-02-27] MEDS: ASPIRIN 81 MG TABLET, CHEWABLE PO SCH (10:19)
[2019-02-27] MEDS: LEVOFLOXACIN 500 MG/D5W RTU 500 MG/100 ML RTUPB IV SCH (10:19)
[2019-02-27] MEDS: METOPROLOL TARTRATE 25 MG TABLET PO SCH ×2 (10:19→21:41)
--- NOTE | 2019-02-27 13:54 | PDOC PROGRESS REPORT ---
Subjective Progress Note for:: 02/27/19 Subjective:: No adverse events overnight. No new complaints. Blood pressure has been excellent since we put her back on the medication she was supposed to be taking. She had no chest pain or shortness of breath. Reason For Visit: HYPERTENSIVE URGENCY, UTI Physical Exam Vital Signs: Temp Pulse Resp BP Pulse Ox 98.2 F 72 18 130/52 H 98 02/27/19 12:19 02/27/19 12:19 02/27/19 12:19 02/27/19 12:19 02/27/19 12:19 Intake & Output 02/26/19 02/27/19 02/28/19 06:59 06:59 06:59 Intake Total 2510 950 Balance 2510 950 Weight 76.9 kg General appearance: PRESENT: no acute distress, cooperative, disheveled, obese Respiratory exam: PRESENT: clear to auscultation janae, symmetrical, unlabored. ABSENT: accessory muscle use, chest wall tenderness, crackles, prolonged expiratory phas, rhonchi, tachypnea, wheezes Cardiovascular exam: PRESENT: RRR, +S1, +S2 Pulses: PRESENT: normal carotid pulses Vascular exam: PRESENT: normal capillary refill GI/Abdominal exam: PRESENT: normal bowel sounds, soft. ABSENT: distended, guarding, rebound, tenderness Extremities exam: PRESENT: +1 edema - At the ankles. ABSENT: clubbing, pedal edema Musculoskeletal exam: PRESENT: normal inspection. ABSENT: deformity Neurological exam: PRESENT: alert, awake, oriented to person, oriented to place, oriented to situation Psychiatric exam: PRESENT: flat affect Skin exam: PRESENT: dry, warm Results Laboratory Results: 02/27/19 09:10 02/27/19 09:10 02/26/19 02/26/19 02/26/19 13:40 13:40 13:40 WBC 8.5 RBC 4.49 Hgb 12.7 Hct 38.1 MCV 85 MCH 28.3 MCHC 33.3 RDW 15.7 H Plt Count 111 L Seg Neutrophils % 71.7 VBG pH VBG pCO2 VBG HCO3 VBG Base Excess Sodium 143.1 Potassium 3.8 Chloride 106 Carbon Dioxide 24 Anion Gap 13 BUN 7 Creatinine 0.51 L Est GFR ( Amer) > 60 Glucose 107 Lactic Acid 4.4 H Calcium 9.9 Magnesium Total Bilirubin 1.1 AST 54 H Alkaline Phosphatase 115 Total Protein 8.2 Albumin 4.6 Triglycerides Cholesterol LDL Cholesterol Direct VLDL Cholesterol HDL Cholesterol TSH Urine Color Urine Appearance Urine pH Ur Specific [place] Urine Protein Urine Glucose (UA) Urine Ketones Urine Blood Urine RBC (Auto) 02/26/19 02/26/19 02/26/19 13:40 13:40 13:40 WBC RBC Hgb Hct MCV MCH MCHC RDW Plt Count Seg Neutrophils % VBG pH 7.38 VBG pCO2 42.0 VBG HCO3 24.2 VBG Base Excess -1.0 Sodium Potassium Chloride Carbon Dioxide Anion Gap BUN Creatinine Est GFR ( Amer) Glucose Lactic Acid Calcium Magnesium Total Bilirubin AST Alkaline Phosphatase Total Protein Albumin Triglycerides Cholesterol LDL Cholesterol Direct VLDL Cholesterol HDL Cholesterol TSH 2.92 Urine Color YELLOW Urine Appearance CLOUDY Urine pH 7.0 Ur Specific [place] 1.009 Urine Protein NEGATIVE Urine Glucose (UA) NEGATIVE Urine Ketones NEGATIVE Urine Blood SMALL H Urine RBC (Auto) 4 02/26/19 02/26/19 02/27/19 13:40 20:10 01:21 WBC RBC Hgb Hct MCV MCH MCHC RDW Plt Count Seg Neutrophils % VBG pH VBG pCO2 VBG HCO3 VBG Base Excess Sodium Potassium Chloride Carbon Dioxide Anion Gap BUN Creatinine Est GFR ( Amer) Glucose Lactic Acid 2.0 1.5 Calcium Magnesium Total Bilirubin AST Alkaline Phosphatase Total Protein Albumin Triglycerides 211 H Cholesterol 223.56 H LDL Cholesterol Direct 115 H VLDL Cholesterol 42.2 H HDL Cholesterol 70 TSH Urine Color Urine Appearance Urine pH Ur Specific [place] Urine Protein Urine Glucose (UA) Urine Ketones Urine Blood Urine RBC (Auto) 02/27/19 02/27/19 09:10 09:10 WBC 5.6 RBC 3.57 L Hgb 10.1 L D Hct 30.4 L MCV 85 MCH 28.4 MCHC 33.3 RDW 15.3 H Plt Count 87 L Seg Neutrophils % 64.1 VBG pH VBG pCO2 VBG HCO3 VBG Base Excess Sodium 140.4 Potassium 3.5 L Chloride 107 Carbon Dioxide 25 Anion Gap 8 BUN 9 Creatinine 0.53 Est GFR ( Amer) > 60 Glucose 108 Lactic Acid Calcium 8.6 Magnesium 1.7 Total Bilirubin 0.6 AST 37 H Alkaline Phosphatase 78 Total Protein 6.1 L Albumin 3.3 L Triglycerides Cholesterol LDL Cholesterol Direct VLDL Cholesterol HDL Cholesterol TSH Urine Color Urine Appearance Urine pH Ur Specific [place] Urine Protein Urine Glucose (UA) Urine Ketones Urine Blood Urine RBC (Auto) 02/26/19 02/27/19 02/27/19 13:40 01:21 09:10 Troponin I 0.037 0.450 0.347 NT-Pro-B Natriuret Pep 121 Impressions: Chest X-Ray 02/26/19 13:41 IMPRESSION: HEART ENLARGED WITHOUT FAILURE. NO OTHER SIGNIFICANT RADIOGRAPHIC FINDING IN THE CHEST. Assessment and Plan - Diagnosis (1) Hypertensive urgency Is this a current diagnosis for this admission?: Yes Plan: This was simply a matter of her coming off of her blood pressure medications for no good reason. She did not consult with any of her physicians prior. We will put her back on her blood pressure medication and that her blood pressures controlled. Problem is, despite the fact that she was not having any chest pain, a troponin was checked and it did show a mild elevation. This is more than likely from her accelerated hypertension and is now trending down. Unfo rtunately, this patient has multiple risk factors, such as her age, long smoking history, hypertension, and abnormal cholesterol levels, and therefore in this setting I think a cardiac evaluation is warranted. Of set her up for a stress test tomorrow. She said that she is never had one before. She said that she never had a heart catheterization before either. (2) UTI (urinary tract infection) Qualifiers: Urinary tract infection type: acute cystitis Hematuria presence: without hematuria Qualified Code(s): N30.00 - Acute cystitis without hematuria Is this a current diagnosis for this admission?: Yes Plan: I think this is more likely an asymptomatic bacteriuria. She was not complaining of any dysuria, but somebody decided to check a urinalysis anyway. She is on antibiotics and cultures pending. - Time Time Spent with patient: 25-34 minutes
[2019-02-27] MEDS: ATORVASTATIN CALCIUM 40 MG TABLET PO SCH (21:41)
--- NOTE | 2019-02-27 23:19 | EKG REPORT ---
SEVERITY:- ABNORMAL ECG - SINUS RHYTHM LEFT ANTERIOR FASCICULAR BLOCK BORDERLINE PROLONGED QT INTERVAL : Confirmed by: Milton Mcdowell 27-Feb-2019 23:17:56
[2019-02-28 05:27] LABS: ABSOLUTE EOSINOPHILS # (AUTO) 0.1 10^3/uL (0.0-0.6); ABSOLUTE LYMPHOCYTES (AUTO) 1.1 10^3/uL (0.5-4.7); ABSOLUTE MONOCYTES (AUTO) 0.5 10^3/uL (0.1-1.4); ABSOLUTE NEUT (AUTO) 3.5 10^3/uL (1.7-8.2); BASOPHILS % (AUTO) 0.8 % (0-2); EOSINOPHILS % (AUTO) 2.4 % (0-6); HEMATOCRIT 31.9 % (36.0-47.0); HEMOGLOBIN 10.6 g/dL (12.0-15.5); LYMPHOCYTES % (AUTO) 21.1 % (13-45); MEAN CORPUSCULAR HEMOGLOBIN 28.5 pg (27.0-33.4); MEAN CORPUSCULAR HGB CONC 33.3 g/dL (32.0-36.0); MEAN CORPUSCULAR VOLUME 86 fl (80-97); MONOCYTES % (AUTO) 9.8 % (3-13); RED BLOOD COUNT 3.73 10^6/uL (3.72-5.28); RED CELL DISTRIBUTION WIDTH 15.7 % (11.5-14.0); SEGMENTED NEUTROPHILS % (AUTO) 65.9 % (42-78); TOTAL CELLS COUNTED % (AUTO) 100 %; WHITE BLOOD COUNT 5.4 10^3/uL (4.0-10.5)
[2019-02-28] MEDS: HEPARIN SOD (PORCINE) 5,000 UNIT/ML 1 ML VIAL SUBCUT SCH ×3 (05:27→21:30)
[2019-02-28] MEDS: PANTOPRAZOLE SODIUM 40 MG TABLET.DR PO SCH (05:28)
[2019-02-28 05:49] LABS: ALBUMIN 3.5 g/dL (3.5-5.0); ALKALINE PHOSPHATASE 85 U/L (38-126); ANION GAP 7 (5-19); ASPARTATE AMINO TRANSFERASE 41 U/L (14-36); BILIRUBIN,DIRECT 0.1 mg/dL (0.0-0.4); BILIRUBIN,TOTAL 0.6 mg/dL (0.2-1.3); BLOOD UREA NITROGEN 12 mg/dL (7-20); CALCIUM 9.5 mg/dL (8.4-10.2); CARBON DIOXIDE 28 mmol/L (22-30); CHLORIDE 107 mmol/L (98-107); GLUCOSE 131 mg/dL (75-110); POTASSIUM 4.2 mmol/L (3.6-5.0); TOTAL PROTEIN 6.7 g/dL (6.3-8.2)
[2019-02-28 06:04] LABS: PLATELET COUNT 79 10^3/uL (150-450)
[2019-02-28] MEDS: ASPIRIN 81 MG TABLET, CHEWABLE PO SCH (10:43)
[2019-02-28] MEDS: NICOTINE 21 MG/24 HR PATCH.TD24 TD SCH (10:43)
[2019-02-28] MEDS: DOCUSATE SODIUM 100 MG CAPSULE PO SCH ×2 (10:43→17:10)
[2019-02-28] MEDS: LISINOPRIL 10 MG TABLET PO SCH (10:43)
[2019-02-28] MEDS: METOPROLOL TARTRATE 25 MG TABLET PO SCH ×2 (10:43→21:31)
[2019-02-28] MEDS: LEVOFLOXACIN 500 MG/D5W RTU 500 MG/100 ML RTUPB IV SCH (10:44)
[2019-02-28] MEDS: ACETAMINOPHEN 325 MG TABLET PO PRN (11:03)
[2019-02-28] MEDS ORDERED: ACETAMINOPHEN 325 MG TABLET PO PRN (11:57)
--- NOTE | 2019-02-28 13:04 | PDOC PROGRESS REPORT ---
Subjective Progress Note for:: 02/28/19 Subjective:: No adverse events overnight. No new complaints. Vital signs have been stable. Eating and drinking without difficulty. No chest pain or shortness of breath. No adverse events on telemetry. Reason For Visit: HYPERTENSIVE URGENCY, UTI Physical Exam Vital Signs: Temp Pulse Resp BP Pulse Ox 97.8 F 75 17 137/58 H 99 02/28/19 12:03 02/28/19 12:03 02/28/19 12:03 02/28/19 12:03 02/28/19 12:03 Intake & Output 02/27/19 02/28/19 03/01/19 06:59 06:59 06:59 Intake Total 2510 1170 540 Balance 2510 1170 540 Weight 76.9 kg 76 kg General appearance: PRESENT: no acute distress, cooperative, disheveled, obese Respiratory exam: PRESENT: clear to auscultation janae, symmetrical, unlabored. ABSENT: accessory muscle use, chest wall tenderness, crackles, prolonged expiratory phas, rhonchi, tachypnea, wheezes Cardiovascular exam: PRESENT: RRR, +S1, +S2 Pulses: PRESENT: normal carotid pulses Vascular exam: PRESENT: normal capillary refill GI/Abdominal exam: PRESENT: normal bowel sounds, soft. ABSENT: distended, guarding, rebound, tenderness Extremities exam: PRESENT: +1 edema - At the ankles. ABSENT: clubbing, pedal edema Musculoskeletal exam: PRESENT: normal inspection. ABSENT: deformity Neurological exam: PRESENT: alert, awake, oriented to person, oriented to place, oriented to situation Psychiatric exam: PRESENT: flat affect Skin exam: PRESENT: dry, warm Results Laboratory Results: 02/28/19 04:45 02/28/19 04:45 02/28/19 02/28/19 04:45 04:45 WBC 5.4 RBC 3.73 Hgb 10.6 L Hct 31.9 L MCV 86 MCH 28.5 MCHC 33.3 RDW 15.7 H Plt Count 79 L Seg Neutrophils % 65.9 Sodium 142.0 Potassium 4.2 Chloride 107 Carbon Dioxide 28 Anion Gap 7 BUN 12 Creatinine 0.66 Est GFR ( Amer) > 60 Glucose 131 H Calcium 9.5 Magnesium 1.7 Total Bilirubin 0.6 AST 41 H Alkaline Phosphatase 85 Total Protein 6.7 Albumin 3.5 02/26/19 13:40 Clean Catch Midstream Urine Culture - Final Escherichia Coli 02/26/19 02/27/19 02/27/19 13:40 01:21 09:10 Troponin I 0.037 0.450 0.347 NT-Pro-B Natriuret Pep 121 Impressions: Chest X-Ray 02/26/19 13:41 IMPRESSION: HEART ENLARGED WITHOUT FAILURE. NO OTHER SIGNIFICANT RADIOGRAPHIC FINDING IN THE CHEST. Assessment and Plan - Diagnosis (1) Hypertensive urgency Is this a current diagnosis for this admission?: Yes Plan: This was simply a matter of her coming off of her blood pressure medications for no good reason. She did not consult with any of her physicians prior. We have resumed her blood pressure medication and her blood pressures are much improved. Stress test that was scheduled for today has been delayed until tomorrow. If it is negative, she can go home. (2) UTI (urinary tract infection) Qualifiers: Urinary tract infection type: acute cystitis Hematuria presence: without hematuria Qualified Code(s): N30.00 - Acute cystitis without hematuria Is this a current diagnosis for this admission?: Yes Plan: I think this is more likely an asymptomatic bacteriuria. She was not complaining of any dysuria, but somebody decided to check a urinalysis anyway. She is on antibiotics and cultures pending. I do not think she is going to need antibiotics beyond this hospital stay. - Time Time Spent with patient: 15-24 minutes
[2019-02-28] MEDS: ATORVASTATIN CALCIUM 40 MG TABLET PO SCH (21:33)
[2019-03-01] MEDS: HEPARIN SOD (PORCINE) 5,000 UNIT/ML 1 ML VIAL SUBCUT SCH ×2 (05:46→14:26)
[2019-03-01 06:01] LABS: ABSOLUTE EOSINOPHILS # (AUTO) 0.1 10^3/uL (0.0-0.6); ABSOLUTE LYMPHOCYTES (AUTO) 1.2 10^3/uL (0.5-4.7); ABSOLUTE MONOCYTES (AUTO) 0.6 10^3/uL (0.1-1.4); ABSOLUTE NEUT (AUTO) 2.8 10^3/uL (1.7-8.2); BASOPHILS % (AUTO) 0.8 % (0-2); EOSINOPHILS % (AUTO) 3.1 % (0-6); HEMATOCRIT 32.7 % (36.0-47.0); HEMOGLOBIN 10.9 g/dL (12.0-15.5); LYMPHOCYTES % (AUTO) 24.3 % (13-45); MEAN CORPUSCULAR HEMOGLOBIN 28.3 pg (27.0-33.4); MEAN CORPUSCULAR HGB CONC 33.3 g/dL (32.0-36.0); MEAN CORPUSCULAR VOLUME 85 fl (80-97); MONOCYTES % (AUTO) 12.9 % (3-13); RED BLOOD COUNT 3.84 10^6/uL (3.72-5.28); RED CELL DISTRIBUTION WIDTH 15.9 % (11.5-14.0); SEGMENTED NEUTROPHILS % (AUTO) 58.9 % (42-78); TOTAL CELLS COUNTED % (AUTO) 100 %; WHITE BLOOD COUNT 4.8 10^3/uL (4.0-10.5)
[2019-03-01 06:12] LABS: ALBUMIN 3.5 g/dL (3.5-5.0); ALKALINE PHOSPHATASE 74 U/L (38-126); ANION GAP 9 (5-19); ASPARTATE AMINO TRANSFERASE 38 U/L (14-36); BILIRUBIN,DIRECT 0.1 mg/dL (0.0-0.4); BILIRUBIN,TOTAL 0.8 mg/dL (0.2-1.3); BLOOD UREA NITROGEN 15 mg/dL (7-20); CALCIUM 9.5 mg/dL (8.4-10.2); CARBON DIOXIDE 25 mmol/L (22-30); CHLORIDE 109 mmol/L (98-107); GLUCOSE 114 mg/dL (75-110); POTASSIUM 4.3 mmol/L (3.6-5.0); TOTAL PROTEIN 6.7 g/dL (6.3-8.2)
[2019-03-01] MEDS: PANTOPRAZOLE SODIUM 40 MG TABLET.DR PO SCH (06:15)
[2019-03-01 06:32] LABS: PLATELET COUNT 74 10^3/uL (150-450)
[2019-03-01] MEDS ORDERED: REGADENOSON INJ 0.4 MG/5 ML DISP.SYRIN IV ONE (10:51)
[2019-03-01] MEDS: LEVOFLOXACIN 500 MG/D5W RTU 500 MG/100 ML RTUPB IV SCH (11:33)
[2019-03-01] MEDS: DOCUSATE SODIUM 100 MG CAPSULE PO SCH ×2 (11:33→17:33)
[2019-03-01] MEDS: ASPIRIN 81 MG TABLET, CHEWABLE PO SCH (11:33)
[2019-03-01] MEDS: METOPROLOL TARTRATE 25 MG TABLET PO SCH (11:33)
[2019-03-01] MEDS: LISINOPRIL 10 MG TABLET PO SCH (11:33)
--- NOTE | 2019-03-01 13:42 | ADVANCED CARE ---
- Diagnosis (1) Hypertensive urgency Diagnosis Current: Yes (2) Systemic inflammatory response syndrome (SIRS) Diagnosis Current: Yes (3) Left bundle branch block Diagnosis Current: Yes (4) Murmur, heart Diagnosis Current: Yes (5) Obstructive sleep apnea Diagnosis Current: Yes (6) UTI (urinary tract infection) Diagnosis Current: Yes Resuscitation Status: Do Not Intubate Discussion: Was informed by primary nurse that patient wished to change her CODE STATUS to DNR/DNI. Patient alert oriented x4, enjoying her breakfast. In no apparent distress, accompanied by her granddaughter and friend. Patient was extensively educated about DNR/DNI, she voiced understanding and would like to change her CODE STATUS to DNR DNI. Care Planning Goals: Patient CODE STATUS will be switched to DNR/DNI as per patient wishes. Time Spent: 15
[2019-03-01] MEDS: NICOTINE 21 MG/24 HR PATCH.TD24 TD SCH (14:24)
[2019-03-01 17:21] VITALS: BP 147/56
--- NOTE | 2019-03-01 22:01 | DRAGON STRESS TEST REPORT ---
Intravenous Lexiscan Cardiolite stress test using single photon emmision computerized tomography. Date of procedure: 03/01/2019.Ordering Provider: Dr. Jerman You. Patient's status: In Patient. Indication: Patient with elevated troponin I when she was admitted with hypertensive emergency. Hence need to need for coronary artery disease with service ischemia versus scar/OK. Coronary risk factors: Age, hypertension, dyslipidemia, and tobacco abuse disorder. Resting EKG: Sinus Rhythm. No acute changes. Stress EKG: No changes of ischemia. The patient has no chest pain or discomfort, and there were no arrhythmias seen. There is partial infiltration of the Cardiolite and the patient's arm. There was enlargement of the lymph node on the left axilla. Note that the patient has not had a mammogram in a long time. Reason for termination: Protocol. Conclusions: Normal EKG and hemodynamic response to IV Lexiscan. Nuclear data: At rest the patient was given 11.97 millicuries of technetium 99m sestamibi injected intravenously. As per protocol rest non gated SPECT images were obtained. Subsequently the patient was given intravenous Lexiscan at a dose of 0.4 mg in 5 mL intravenously, followed by flush with normal saline. Subsequently the stress dose of 34.4 millicuries of technetium 99m sestamibi was injected intravenously. As per protocol stress gated images were obtained. Nuclear interpretation: Review of images showed that all segments of the myocardium had normal perfusion at rest, and normal perfusion post stress with IV Lexiscan. All segments of the myocardium had normal motion, contraction, and thickening by gated study. T. I D. ratio was normal at 1.11. There is no transient ischemic dilatation of the left ventricle. Computer read rest, and stress left ventricular ejection fraction were 83 %, and 79 %, respectively. Conclusion: 1. There is no scintigraphic evidence of Lexiscan induced myocardial ischemia. 2. There is no scintigraphic evidence of myocardial infarction/scar. Recommendations: 1.Aggressive risk factor modification, and treating the underlying co- morbidities. 2. In view of the lymph node in the left axilla being visualized. Would recommend that the patient have an outpatient mammogram to be sure that this lymph node is benign. This has been discussed with the hospitalist Dr. Ambriz, including the results of the negative stress test. [facility]
--- NOTE | 2019-03-02 12:10 | XCELERA REPORT ---
[address] [address] Transthoracic Echocardiogram Report Name: ANT TILLEY Age: 78 yrs Gender: Female : 1940 Patient Status: Inpatient Patient Location: [address] [place], [place] [address] Study Date: 02/28/2019 11:14 AM Height: 60 in Weight: 166 lb BSA: 1.7 m2 Procedure: A two-dimensional transthoracic echocardiogram with color flow and Doppler was performed. Study Quality: Fair. Reason For Study: systolic murmur History: systolic murmur. Ordering Physician: LORNA JONES Performed By: Catia De Los Santos Interpretation Summary The left ventricle is normal in size. There is normal left ventricular wall thickness. LV EF is 75% Doppler measurements suggest impaired left ventricular relaxation, which is associated with grade I/IV or mild diastolic dysfunction The left ventricular wall motion is normal. There is no thrombus. Probably no ASD,VSD,or PFO seen. The right ventricle is grossly normal size. The right ventricle is not well visualized secondary to technical limitations The right atrium is normal. The left atrial size is normal. There is no evidence of mitral valve prolapse. There is no vegetation seen on the mitral valve. There is no mitral valve stenosis. There is a trace amount of mitral regurgitation There is no aortic valvular vegetation. There is no aortic valve stenosis There is no LVOT obstruction. No aortic regurgitation is present. There is no tricuspid stenosis. There is a trace to mild amount of tricuspid regurgitation There is mild pulmonary hypertension by echo RVSP is 39 to 44 mm of Hg , with RA mean of 5 to 10. There is no pulmonic valvular stenosis. There is no pulmonic valvular regurgitation. The aortic root is normal size. The inferior vena cava appeared normal and decreased > 50% with respiration (RAP 5-10 mmHg) There is no pericardial effusion. MMode/2D Measurements & Calculations RVDd: 2.9 cm LVIDd: 5.0 cm FS: 42.5 % Ao root diam: 2.6 cm IVSd: 0.79 cm LVIDs: 2.9 cm EDV(Teich): 116.6 ml Ao root area: 5.1 cm2 LVPWd: 0.97 cm ESV(Teich): 31.0 ml EF(Teich): 73.4 % Doppler Measurements & Calculations MV E max meaghan: MV dec slope: Ao V2 max: LV V1 max P.6 cm/sec 492.6 cm/sec2 195.8 cm/sec 11.8 mmHg MV A max meaghan: MV dec time: 0.27 secAo max PG: LV V1 max: 139.8 cm/sec 15.4 mmHg 171.8 cm/sec MV E/A: 0.95 PA V2 max: TR max meaghan: 158.5 cm/sec 290.5 cm/sec PA max P.0 mmHgTR max P.8 mmHg Left Ventricle The left ventricle is normal in size. There is normal left ventricular wall thickness. Left ventricular systolic function is normal. LV EF is 75%. Doppler measurements suggest impaired left ventricular relaxation, which is associated with grade I/IV or mild diastolic dysfunction. The left ventricular wall motion is normal. There is no thrombus. Probably no ASD,VSD,or PFO seen. Right Ventricle The right ventricle is grossly normal size. The right ventricle is not well visualized secondary to technical limitations. Atria The right atrium is normal. The left atrial size is normal. Mitral Valve There is no evidence of mitral valve prolapse. There is no vegetation seen on the mitral valve. There is no mitral valve stenosis. There is a trace amount of mitral regurgitation. Aortic Valve There is no aortic valvular vegetation. There is no aortic valve stenosis. There is no LVOT obstruction. No aortic regurgitation is present. Tricuspid Valve There is no tricuspid stenosis. There is a trace to mild amount of tricuspid regurgitation. There is mild pulmonary hypertension by echo. RVSP is 39 to 44 mm of Hg , with RA mean of 5 to 10. Pulmonic Valve There is no pulmonic valvular stenosis. There is no pulmonic valvular regurgitation. Great Vessels The aortic root is normal size. The inferior vena cava appeared normal and decreased > 50% with respiration (RAP 5-10 mmHg). Effusions There is no pericardial effusion. : LORNA JONES Lakshmi
--- NOTE | 2019-03-02 13:43 | PDOC DISCHARGE SUMMARY ---
Impression - Admit/DC Date/PCP Admission Date/Primary Care Provider: 02/28/19 08:38 FABIÁN CERON MD Discharge Date: 03/01/19 - Discharge Diagnosis (1) Hypertensive urgency Is this a current diagnosis for this admission?: Yes (2) Systemic inflammatory response syndrome (SIRS) Is this a current diagnosis for this admission?: Yes (3) Left bundle branch block Is this a current diagnosis for this admission?: Yes (4) Murmur, heart Is this a current diagnosis for this admission?: Yes (5) Obstructive sleep apnea Is this a current diagnosis for this admission?: Yes (6) UTI (urinary tract infection) Is this a current diagnosis for this admission?: Yes (7) Obesity (BMI 30.0-34.9) Is this a current diagnosis for this admission?: Yes (8) Hyperlipidemia Is this a current diagnosis for this admission?: Yes - Additional Information Resuscitation Status: Do Not Intubate Discharge Diet: Cardiac Discharge Activity: Activity As Tolerated Referrals: CARMEN HUDSON MD [ACTIVE STAFF] - FABIÁN CERON MD [Primary Care Provider] - 03/09/19 10:15 am Prescriptions: Aspirin [Aspirin 81 mg Chewable Tablet] 81 mg PO DAILY 30 Days #30 tab.chew Rosuvastatin Calcium [Crestor 20 mg Tablet] 20 mg PO QHS 30 Days #30 tablet Oxybutynin Chloride [Ditropan Xl] 10 mg PO DAILY 30 Days #30 tbs Levofloxacin [Levaquin 500 mg Tablet] 500 mg PO DAILY 2 Days #2 tablet Metoprolol Tartrate [Lopressor 25 mg Tablet] 12.5 mg PO Q12 30 Days #60 tablet Nicotine [Nicotine Patch] 1 each TD DAILY 30 Days #30 patch.dysq Lisinopril [Prinivil 10 mg Tablet] 20 mg PO DAILY 30 Days #30 tablet Home Medications: Acetaminophen [Tylenol] 650 mg PO Q12HP PRN 02/27/19 Aspirin [Aspirin 81 mg Chewable Tablet] 81 mg PO DAILY 30 Days #30 tab.chew 03/01/19 Levofloxacin [Levaquin 500 mg Tablet] 500 mg PO DAILY 2 Days #2 tablet 03/01/19 Lisinopril [Prinivil 10 mg Tablet] 20 mg PO DAILY 30 Days #30 tablet 03/01/19 Metoprolol Tartrate [Lopressor 25 mg Tablet] 12.5 mg PO Q12 30 Days #60 tablet 03/01/19 Nicotine [Nicotine Patch] 1 each TD DAILY 30 Days #30 patch.dysq 03/01/19 Oxybutynin Chloride [Ditropan Xl] 10 mg PO DAILY 30 Days #30 tbs 03/01/19 Rosuvastatin Calcium [Crestor 20 mg Tablet] 20 mg PO QHS 30 Days #30 tablet 03/01/19 History of Present Illiness History of Present Illness: ANT TILLEY is a 78 year old female past medical history of hypertension, obesity, presenting to ED elevation of high blood pressure. Patient was on a lisinopril 20 mg p.o. daily but decided to stop it 2 weeks ago stating she was related to get a refill, Thursday at 11 AM was checking her blood pressure noted to have her blood pressure was very high and her possible in the 150s. She called her granddaughter and she was asked to come to ED. She is also complaining of feeling shaky, having queasy feeling in her stomach, feeling nauseous very anxious, she is also complaining of chronic dysuria, frequency and urgency. Denies any chest pain, shortness of breath, vomiting, abdominal pain, diarrhea, constipation, weight changes, orthopnea, paroxysmal nocturnal dyspnea, or dyspnea on exertion. In ED she was found to have a blood pressure of 211 with UA positive for leukocyte esterase elevated lactic acid. Was started on IV ceftriaxone, volume resuscitated, and given IV hydralazine. Hospitalist called consulted for admission. Hospital Course Hospital Course: (1) Hypertensive emergency Resolved. Was discharged on Coreg 12.5 mg p.o. twice daily and lisinopril 20 mg p.o. daily. This was most likely due to to noncompliance. Patient stopped taking her meds 2 weeks ago. Was evidenced by elevated troponins EKG changes. Troponins 0.037, 0.45, 0.34, 0.11 respectively. Admitted to telemetry, restarted on ELINA, PRN hydralazine, trend troponin, and started on high intensity statins and antiplatelets. (2) Systemic inflammatory response syndrome (SIRS) Resolved. Afebrile. WBC WNL. Patient did not looks toxic however lactic acid was 4.4 and UA positive for leukocyte esterase. Started on volume resuscitation and IV levofloxacin. Lactic acid 4.4, 2.0, 1.5 respectively. (3) Left bundle branch block Denies any history of CAD. Unsure if she ever had any EKG abnormalities. Unfortunately no previous EKG available for comparison. Systolic murmur on physical examination. Chest x-ray positive for cardiomegaly. Admitted to telemetry, troponins were trended. Lipid panel was obtained. Troponins trended (0.037, 0.45, 0.34, 0.11 respectively). Was started sublingual nitroglycerin and IV morphine as needed. Cardiac a stress test and 2D echo was ordered which were both negative for any acute changes. 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 Will follow with PCP in 1 week. (4) Murmur, heart Systolic heart murmur loudest on the aortic region. Denies any history of CHF or CAD. CXR positive for cardiomegaly. 2D echo negative for any valvular changes. (5) Obstructive sleep apnea STOP BANG Score 4 BMI 32.6. Reports history of snoring, lethargy and medical front desk coordinator headache. Has not been evaluated for obstructive sleep apnea. Was a started nocturnal CPAP however patient did not comply. Patient strengths follow-up with PCP and nocturnal outpatient polysomnography. (6) UTI (urinary tract infection) Due to E. coli pansensitive. Received 3 days of IV levofloxacin and patient. Was discharged on 2 days of p.o. levofloxacin. (7) Obesity (BMI 30.0-34.9) TSH WNL. Diet and lifestyle modification recommended. History of YEFRI. Advised on outpatient sleep study. (8) Hyperlipidemia ASCVD score of 57.4. Start on high intensity statin. Physical Exam Vital Signs: Temp Pulse Resp BP Pulse Ox 98.4 F 78 20 147/56 H 97 03/01/19 17:15 03/01/19 17:15 03/01/19 17:15 03/01/19 17:15 03/01/19 17:15 Intake & Output 03/01/19 03/02/19 03/03/19 06:59 06:59 06:59 Intake Total 880 837 Balance 880 837 Weight 76.6 kg General appearance: PRESENT: no acute distress, obese, well-developed, well- nourished Head exam: PRESENT: atraumatic, normocephalic Eye exam: PRESENT: conjunctiva pink, EOMI, PERRLA. ABSENT: scleral icterus Ear exam: PRESENT: normal external ear exam Mouth exam: PRESENT: moist, tongue midline Neck exam: ABSENT: carotid bruit, JVD, lymphadenopathy, thyromegaly Respiratory exam: PRESENT: clear to auscultation janae. ABSENT: rales, rhonchi, wheezes Cardiovascular exam: PRESENT: RRR. ABSENT: diastolic murmur, rubs, systolic murmur Pulses: PRESENT: normal dorsalis pedis pul Vascular exam: PRESENT: normal capillary refill GI/Abdominal exam: PRESENT: normal bowel sounds, soft. ABSENT: distended, guarding, mass, organolmegaly, rebound, tenderness Rectal exam: PRESENT: deferred Extremities exam: PRESENT: full ROM. ABSENT: calf tenderness, clubbing, pedal edema Neurological exam: PRESENT: alert, awake, oriented to person, oriented to place, oriented to time, oriented to situation, CN II-XII grossly intact. ABSENT: motor sensory deficit Psychiatric exam: PRESENT: appropriate affect, normal mood. ABSENT: homicidal ideation, suicidal ideation Skin exam: PRESENT: dry, intact, warm. ABSENT: cyanosis, rash Results Laboratory Results: WBC 4.8 10^3/uL (4.0-10.5) 03/01/19 04:59 RBC 3.84 10^6/uL (3.72-5.28) 03/01/19 04:59 Hgb 10.9 g/dL (12.0-15.5) L 03/01/19 04:59 Hct 32.7 % (36.0-47.0) L 03/01/19 04:59 MCV 85 fl (80-97) 03/01/19 04:59 MCH 28.3 pg (27.0-33.4) 03/01/19 04:59 MCHC 33.3 g/dL (32.0-36.0) 03/01/19 04:59 RDW 15.9 % (11.5-14.0) H 03/01/19 04:59 Plt Count 74 10^3/uL (150-450) L 03/01/19 04:59 Lymph % (Auto) 24.3 % (13-45) 03/01/19 04:59 [place] % (Auto) 12.9 % (3-13) 03/01/19 04:59 Eos % (Auto) 3.1 % (0-6) 03/01/19 04:59 Baso % (Auto) 0.8 % (0-2) 03/01/19 04:59 Absolute Neuts (auto) 2.8 10^3/uL (1.7-8.2) 03/01/19 04:59 Absolute Lymphs (auto) 1.2 10^3/uL (0.5-4.7) 03/01/19 04:59 Absolute Monos (auto) 0.6 10^3/uL (0.1-1.4) 03/01/19 04:59 Absolute Eos (auto) 0.1 10^3/uL (0.0-0.6) 03/01/19 04:59 Absolute Basos (auto) 0.0 10^3/uL (0.0-0.2) 03/01/19 04:59 Seg Neutrophils % 58.9 % (42-78) 03/01/19 04:59 PT 14.0 SEC (11.4-15.4) 02/26/19 13:40 INR 1.08 02/26/19 13:40 VBG pH 7.38 (7.30-7.42) 02/26/19 13:40 VBG pCO2 42.0 mmHg (35-63) 02/26/19 13:40 VBG HCO3 24.2 mmol/L (20-32) 02/26/19 13:40 VBG Base Excess -1.0 mmol/L 02/26/19 13:40 Sodium 143.3 mmol/L (137-145) 03/01/19 04:59 Potassium 4.3 mmol/L (3.6-5.0) 03/01/19 04:59 Chloride 109 mmol/L (98-107) H 03/01/19 04:59 Carbon Dioxide 25 mmol/L (22-30) 03/01/19 04:59 Anion Gap 9 (5-19) 03/01/19 04:59 BUN 15 mg/dL (7-20) 03/01/19 04:59 Creatinine 0.56 mg/dL (0.52-1.25) 03/01/19 04:59 Est GFR ( Amer) > 60 (>60) 03/01/19 04:59 Est GFR (MDRD) Non-Af > 60 (>60) 03/01/19 04:59 Glucose 114 mg/dL (75-110) H 03/01/19 04:59 POC Glucose 108 mg/dL (70-110) 02/26/19 13:31 Lactic Acid 1.5 mmol/L (0.7-2.1) 02/27/19 01:21 Calcium 9.5 mg/dL (8.4-10.2) 03/01/19 04:59 Magnesium 1.8 mg/dL (1.6-2.3) 03/01/19 04:59 Total Bilirubin 0.8 mg/dL (0.2-1.3) 03/01/19 04:59 Direct Bilirubin 0.1 mg/dL (0.0-0.4) 03/01/19 04:59 Neonat Total Bilirubin Not Reportable 03/01/19 04:59 Neonat Direct Bilirubin Not Reportable 03/01/19 04:59 Neonat Indirect Bili Not Reportable 03/01/19 04:59 AST 38 U/L (14-36) H 03/01/19 04:59 ALT 17 U/L (<35) 03/01/19 04:59 Alkaline Phosphatase 74 U/L (38-126) 03/01/19 04:59 Troponin I 0.112 ng/mL 02/28/19 13:30 NT-Pro-B Natriuret Pep 121 pg/mL (<450) 02/26/19 13:40 Total Protein 6.7 g/dL (6.3-8.2) 03/01/19 04:59 Albumin 3.5 g/dL (3.5-5.0) 03/01/19 04:59 Triglycerides 211 mg/dL (<150) H 02/26/19 13:40 Cholesterol 223.56 mg/dL (0-200) H 02/26/19 13:40 LDL Cholesterol Direct 115 mg/dL (<100) H 02/26/19 13:40 VLDL Cholesterol 42.2 mg/dL (10-31) H 02/26/19 13:40 HDL Cholesterol 70 mg/dL (>40) 02/26/19 13:40 TSH 2.92 uIU/mL (0.47-4.68) 02/26/19 13:40 Urine Color YELLOW 02/26/19 13:40 Urine Appearance CLOUDY 02/26/19 13:40 Urine pH 7.0 (5.0-9.0) 02/26/19 13:40 Ur Specific [place] 1.009 02/26/19 13:40 Urine Protein NEGATIVE mg/dL (NEGATIVE) 02/26/19 13:40 Urine Glucose (UA) NEGATIVE mg/dL (NEGATIVE) 02/26/19 13:40 Urine Ketones NEGATIVE mg/dL (NEGATIVE) 02/26/19 13:40 Urine Blood SMALL (NEGATIVE) H 02/26/19 13:40 Urine Nitrite (Reflex) POSITIVE (NEGATIVE) H 02/26/19 13:40 Urine Bilirubin NEGATIVE (NEGATIVE) 02/26/19 13:40 Urine Urobilinogen NEGATIVE mg/dL (<2.0) 02/26/19 13:40 Leukocyte Esterase Rfl MODERATE (NEGATIVE) H 02/26/19 13:40 Urine RBC (Auto) 4 /HPF 02/26/19 13:40 Urine Bacteria (Auto) TRACE /HPF 02/26/19 13:40 Urine WBC (Reflex) 78 /HPF 02/26/19 13:40 Urine WBC Clumps MOD /HPF 02/26/19 13:40 Squamous Epi Cells Auto 2 /HPF 02/26/19 13:40 Amorphous Sediment Auto TRACE /HPF 02/26/19 13:40 Urine Mucus (Auto) OCC /LPF 02/26/19 13:40 Urine Ascorbic Acid NEGATIVE (NEGATIVE) 02/26/19 13:40 02/26/19 02/27/19 02/27/19 13:40 01:21 09:10 Troponin I 0.037 0.450 0.347 NT-Pro-B Natriuret Pep 121 02/28/19 13:30 Troponin I 0.112 NT-Pro-B Natriuret Pep Impressions: Chest X-Ray 02/26/19 13:41 IMPRESSION: HEART ENLARGED WITHOUT FAILURE. NO OTHER SIGNIFICANT RADIOGRAPHIC FINDING IN THE CHEST. Plan Health Concerns: Medication noncompliance. Patient counseled about importance of medication compliance. Voiced understanding. Plan of Treatment: PATIENT TO CALL DR HER'S CELLPHONE FOR APPOINTMENT Stroke Is this a Stroke Patient?: No Acute Heart Failure - Is this a Heart Failure Patient?: No
== END 2019-03-01 18:28 | disposition home or self-care (01) | DRG 305 ==
LOC: ER 13:16 → EH 18:08 → 3W 19:34 → OBSVTOIN 02-28 08:38
PROVIDERS: ADMIT Internal Medicine; ATTEND Internal Medicine
PROC: 5A09457 Assistance with Respiratory Ventilation, 24-96 Consecutive Hours, Continuous Positive Airway Pressure (ICD-10-PCS; principal; 2019-02-26)
PROC: 3E02340 Introduction of Influenza Vaccine into Muscle, Percutaneous Approach (ICD-10-PCS; 2019-03-01)
DX: I16.1 Hypertensive emergency (principal); N30.00 Acute cystitis without hematuria; I44.7 Left bundle-branch block, unspecified; R01.1 Cardiac murmur, unspecified; G47.33 Obstructive sleep apnea (adult) (pediatric); E66.9 Obesity, unspecified; E78.5 Hyperlipidemia, unspecified; I10 Essential (primary) hypertension; F17.210 Nicotine dependence, cigarettes, uncomplicated; B96.20 Unspecified Escherichia coli [E. coli] as the cause of diseases classified elsewhere; Z68.33 Body mass index [BMI] 33.0-33.9, adult; Z23 Encounter for immunization; Z91.14 Patient's other noncompliance with medication regimen; Z88.0 Allergy status to penicillin; Z79.82 Long term (current) use of aspirin; Z79.899 Other long term (current) drug therapy
CPT/HCPCS: 36415; 71045; 78452; 80053; 80061; 81001; 82803; 82962; 83605; 83735; 83880; 84443; 84484; 85025; 85610; 87040; 87086; 87088; 87186; 90686; 93005; 93010; 93017; 93306; 94660; 96361; 96365; 96375; 99291; A9500; G0378; J0360; J0696; J1956; J2405; J2785; J3490; J7030; Q9969

== ENCOUNTER 2019-09-05 08:03 | Day surgery (SDC) | payer MEDICARE, MEDICAID ==
[2019-09-05] MEDS ORDERED: LIDOCAINE 2% INJ-PF (20 MG/ML) 10 ML AMPUL ONE (09:22)
[2019-09-05] MEDS ORDERED: PROPOFOL INJ 200 MG/20 ML VIAL IV ONE ×2 (09:22→11:14)
[2019-09-05] MEDS ORDERED: PROMETHAZINE HCL INJ 25 MG/1 ML VIAL IV PRN (09:36)
[2019-09-05] MEDS ORDERED: DIPHENHYDRAMINE HCL 50 MG/ML VIAL IV PRN (09:36)
[2019-09-05] MEDS ORDERED: ONDANSETRON HCL INJ/PF 4 MG/2 ML SDV IV PRN (09:36)
--- NOTE | 2019-09-05 11:15 | Operative Report ---
Operative Report DATE OF SURGERY: 09/05/19 Operative Report: The risk, benefits and alternatives of the procedure including the risk of bleeding, perforation requiring surgery have been explained to the patient in detail and informed consent has been obtained. The patient is taken back to the operating room and placed in a left, lateral decubital position. Timeout was called. Propofol medication is administered. Rectal examination is done which did not reveal any masses, tears or fissures. Prep is bad. Solid stool throughout the colon. After the procedure was completed when I spoke to her daughter it appeared that patient did not complete the prep. The scope was introduced into the patient's rectum and the scope was able to be carefully advanced to the cecum deep intubation of the cecum could not be performed. However I was at the ileocecal valve. As noted was a very bad prep. The scope was then sequentially pulled out through the various segments of the colon including the ascending colon, pancreatic, transverse colon, splenic flexure, descending colon finding to the rectosigmoid portions of the colon. Retroflexion maneuvers performed. PREOPERATIVE DIAGNOSIS: Heme positive stool POSTOPERATIVE DIAGNOSIS: Polyp noted in the sigmoid area status post snare polypectomy but not able to be retrieved. Diverticulosis. Internal hemorrhoids OPERATION: Colonoscopy with snare polypectomy SURGEON: ADARSH GIBBS ANESTHESIA: LMAC TISSUE REMOVED OR ALTERED: As noted above. COMPLICATIONS: None. ESTIMATED BLOOD LOSS: None. INTRAOPERATIVE FINDINGS: As noted above. PROCEDURE: Patient tolerated the procedure well. No immediate postprocedure complications are noted. Patient is discharged in good condition. Discharge date 09/05/2019. Discharge diet: Regular. Discharge activity: Regular. 2 to 3-week follow-up to discuss findings. Patient is instructed to call the office and proceed to the emergency room should there be any further problems or questions. I would suggest 1 year surveillance colonoscopy due to inadequate prep and polyp that was found.
[2019-09-05 12:41] VITALS: BP 162/54
== END 2019-09-05 12:30 | disposition home or self-care (01) ==
LOC: OROUT 08:03
PROVIDERS: ATTEND Internal Medicine Gastroenterology
DX: F17.210 Nicotine dependence, cigarettes, uncomplicated (principal); D12.5 Benign neoplasm of sigmoid colon; K57.30 Diverticulosis of large intestine without perforation or abscess without bleeding; K64.8 Other hemorrhoids; I10 Essential (primary) hypertension; D64.9 Anemia, unspecified; Z88.0 Allergy status to penicillin; Z09 Encounter for follow-up examination after completed treatment for conditions other than malignant neoplasm; Z87.19 Personal history of other diseases of the digestive system; Z79.899 Other long term (current) drug therapy
CPT/HCPCS: 45380; 45385; 00811; J2704; J3490; 811